=== PATIENT | male | born 1965 | race Two or more races ===

== ENCOUNTER 2019-08-22 09:03 | Emergency (ER) | payer SELFPAY ==
[~2019-08-22] VITALS: Ht 152.4 cm; Wt 70.8 kg
[2019-08-22] MEDS ORDERED: NKM (09:12)
[2019-08-22 09:15] VITALS: BP 151/79
--- NOTE | 2019-08-22 09:15 | NUR ---
ED Nurse Note: PT AAOX4, VSS, WITH NO SIGNS OF DISTRESS.PT WALKED IN TO ER, VERY SLOWLY, C/O LOWER BACK PAIN X 5 DAYS AGO AFTER LIFTING A 5 GAL CONTAINER OF LIQUID OFF THE FLOOR AT WORK. PT BENT OVER TO PICK OBJECT UP. KNEES WERE NOT USED.
--- NOTE | 2019-08-22 09:20 | NUR ---
ED Nurse Note: MD AT BEDSIDE.
[2019-08-22] MEDS ORDERED: Methocarbamol 750mg tab ORAL ONE (09:30)
[2019-08-22] MEDS ORDERED: Ketorolac 30mg Inj IM ONE (09:30)
--- NOTE | 2019-08-22 10:01 | NUR ---
ED Nurse Note: PT OUT FOR X-RAY.
--- NOTE | 2019-08-22 10:28 | NUR ---
ED Nurse Note: PT AND FAMILY MEMBER EDUCATED ON PROPPER LIFTING. PT VERBALIZED UNDERDTANDING. PT RESTING WITH FAMILY AT BEDSIDE.
[2019-08-22 10:34] VITALS: BP 145/80
[2019-08-22] MEDS ORDERED: LIDODERM700 M1 TOPIC (10:35)
[2019-08-22] MEDS ORDERED: ROBAXIN-750750 MG PO (10:35)
[2019-08-22] MEDS ORDERED: IBUPROFEN600 MG ORAL (10:35)
[2019-08-22 10:42] VITALS: BP 155/89
--- NOTE | 2019-08-22 10:42 | NUR ---
ER DISCHARGE NOTE: Patient is cleared to be discharged per ERMD, pt is aox4, on room air, with stable vital signs. pt was given dc and prescription instructions, pt was able to verbalize understanding, pt id band and iv site removed without complications. pt is able to ambulate with steady gait. pt took all belongings. PT STATES PAIN IS 1/10.
--- NOTE | 2019-08-22 11:32 | Diagnostic Imaging Report ---
Indication: Back pain Comparison: None Findings: 3 views of the lumbar spine were obtained. No acute fracture seen. Intervertebral disks appear relatively well-maintained as do vertebral body heights. Minimal endplate osteophytes are present. The bones are osteopenic. There is a hip prosthesis on the right demonstrated. IMPRESSION: No acute fracture identified
--- NOTE | 2019-08-22 15:22 | Emergency Room Report ---
History of Present Illness General Chief Complaint: Back Injury Source: Patient Present Illness HPI 54-year-old male presents ED for evaluation. Patient complaining of lower back pain which started 5 days ago. Started after he lifted a heavy object at work. Pain is dull, 8 out of 10, nonradiating. Pain is worse with twisting and bending. Denies flank pain. Denies leg or motor weakness. Denies any bowel or incontinence. No other aggravating relieving factors. Denies any other associated symptoms Allergies: Coded Allergies: No Known Allergies (Unverified , 08/22/19) Patient History Past Medical History: none Past Surgical History: none Pertinent Family History: none Social History: Denies: smoking, alcohol use, drug use Immunizations: UTD Reviewed Nursing Documentation: PMH: Agreed; PSxH: Agreed Nursing Documentation-PMH Past Medical History: No Stated History Hx Cardiac Problems: No - ARTHRITIS Review of Systems All Other Systems: negative except mentioned in HPI Physical Exam Vital Signs Date Time Temp Pulse Resp B/P (MAP) Pulse Ox O2 Delivery O2 Flow Rate FiO2 08/22/19 09:08 98.1 64 18 151/79 (103) 97 Room Air Sp02 EP Interpretation: reviewed, normal General Appearance: no apparent distress, alert, GCS 15, non-toxic Head: normocephalic, atraumatic Eyes: bilateral eye normal inspection, bilateral eye PERRL ENT: hearing grossly normal, normal pharynx, no angioedema, normal voice Neck: full range of motion, supple/symm/no masses Respiratory: chest non-tender, lungs clear, normal breath sounds, speaking full sentences Cardiovascular #1: regular rate, rhythm, no edema Cardiovascular #2: 2+ carotid (R), 2+ carotid (L), 2+ radial (R), 2+ radial (L) , 2+ dorsalis pedis (R), 2+ dorsalis pedis (L) Gastrointestinal: normal bowel sounds, non tender, soft, non-distended, no guarding, no rebound Rectal: deferred Genitourinary: no CVA tenderness, vertebral tenderness Musculoskeletal: back normal, gait/station normal, normal range of motion, non- tender Neurologic: alert, oriented x3, responsive, motor strength/tone normal, sensory intact, speech normal Psychiatric: judgement/insight normal, memory normal, mood/affect normal, no suicidal/homicidal ideation Reflexes: 3+ bicep (R), 3+ bicep (L), 3+ tricep (R), 3+ tricep (L), 3+ knee (R) , 3+ knee (L) Skin: no rash Lymphatic: no adenopathy Medical Decision Making Diagnostic Impression: Primary Impression: Injury of back Qualified Codes: S39.92XA - Unspecified injury of lower back, initial encounter ER Course Hospital Course 54 yo M presents with lower back pain s/p lifting heavy object Differential diagnoses include: Fracture, dislocation, sprain, contusion Clinical course Patient placed on stretcher. After initial history and physical, I ordered pain medications and Xrays of L spine Xrays prelim read shows no acute fracture/dislocation. On reassessment pain improved. Discussed findings with patient. Likely muscular. Will discharge to home. Does not have a PMD. Will provide referrals. Diagnosis - back pain Stable and discharged to home with prescription for Motrin, robaxin, lidoderm. weight bear as tolerated. Followup with PMD. Return to ED if symptoms recur or worsen Other X-Ray Diagnostic Results Other X-Ray Diagnostic Results : X-Ray ordered: L spine # of Views/Limited Vs Complete: 3 View Indication: Pain EP Interpretation: Yes Interpretation: no dislocation, no soft tissue swelling, no fractures Impression: No acute disease Electronically Signed by: Electronically signed by Mejia Duran MD Last Vital Signs Date Time Temp Pulse Resp B/P (MAP) Pulse Ox O2 Delivery O2 Flow Rate FiO2 08/22/19 10:42 98.7 79 18 155/89 Room Air 08/22/19 10:34 100 Status: improved Disposition: HOME, SELF-CARE Condition: Stable Scripts Lidocaine Patch* (Lidoderm Patch*) 1 Each Adh..patch 1 PATCH TOPIC DAILY, #7 PATCH 0 Refills Patch(es) may remain in place for up to 12 hours in any 24-hour period. Prov: Mejia Duran MD 08/22/19 Methocarbamol* (ROBAXIN-750*) 750 Mg Tablet 750 MG PO TID, #21 TAB 0 Refills Prov: Mejia Duran MD 08/22/19 Ibuprofen* (MOTRIN*) 600 Mg Tablet 600 MG ORAL Q8H PRN for For Pain, #30 TAB 0 Refills Prov: Mejia Duran MD 08/22/19 Referrals: [facility] Patient Instructions: Back Pain, Adult Mejia Duran MD Aug 22, 2019 15:22
== END 2019-08-22 10:42 | disposition home or self-care (01) ==
LOC: EMR 09:36
DX: S39.92XA Unspecified injury of lower back, initial encounter (principal); X50.0XXA Overexertion from strenuous movement or load, initial encounter; Y92.9 Unspecified place or not applicable; Y99.0 Civilian activity done for income or pay
CPT/HCPCS: 72020; 96372; 99283; J1885